=== PATIENT | male | born 1955 | race Caucasian/White ===

== ENCOUNTER → 2016-09-09 | Outpatient (CLI) | payer BC ==
[~2016-09-09] MED LIST: HYGROTON25 MG PO; LIPITOR20 M1 PO; MIRALAX17 GM PO; NORVASC5 MG PO; SENNA8.6 MG PO; TYLENOL325 MG PO
--- NOTE | ~2016-09-09 | ESTC ---
Cardiac Perfusion Imaging Demographics Patient Name JODY Luna Gender Male Patient Number [id number] Race Visit Number [id number] Ethnicity Corporate ID Room Number Accession Number [id number] Height 71 inches Date of 1955 Weight 360 pounds Interpreting RICKIE Naa [place] Date of study 09/09/2016 Physician Rigoberto Nunn Supervising /NOBLEP Yossi Ornelas APRN NM Technologist Ordering Physician Wanda Singh MD Stress Mahesh Cortes RVT, pilot plant research technician RDCS Stress ECG Reading Yossi Ornelas APRN Nurse Rosi Tavarez RN Physician The procedure was explained in detail to the patient. Risks, complications and alternative treatments were reviewed. Written consent was obtained. Medications Reviewed with Patient prior to Procedure. Procedure Procedure Type: Nuclear Stress Test:Pharmacological, Lexiscan, Cardiolite Stress Test Procedure Start time: 09/09/2016 00:00 Indications: Pre surgical clearance. Risk Factors The patient risk factors include:obesity, hypercholesterolemia and hypertension. Conclusions Summary Perfusion Images: The overall quality of the study is good. Left ventricular cavity is noted to be normal on the stress and rest studies. The right ventricle is not visualized and cannot be assessed. Stress SPECT images and Rest SPECT images demonstrate homogenous tracer distribution throughout the myocardium except for a small size mild decrease uptake in the area involving the apical wall on stress images, only on horizontal long axis images, likely an artifact. Gated SPECT imaging reveals normal myocardial thickening and wall motion. The left ventricular ejection fraction was calculated to be 66%. Impression ECG portion of stress test is clinically negative for ischemia by diagnostic criteria. Myocardial perfusion imaging is probably normal. Overall left ventricular systolic function was normal without regional wall motion abnormalities. There are no previous studies for comparison . Stress Protocols Resting ECG Normal sinus rhythm. Resting HR:68 bpm Resting BP:178/79 mmHg Pre-stress physical exam: Patient assessed by Michael WHIPPLE prior to testing. Chest - CTA Cardio - RRR, S1, S2 Stress Protocol:Pharmacologic Peak HR:92 bpm HR response: Appropriate Peak BP:184/84 mmHg BP response: Appropriate Predicted HR: 161 bpm HR/BP product:56908 % of predicted HR: 57 Test duration: 04:30 min Reason for termination:Infusion complete ECG Findings No ECG changes suggestive of ischemia. Arrhythmias No rhythm abnormality. Symptoms Mild Shortness of breath. Chest tightness Complications Procedure complication: None. Stress Interpretation Appropriate hemodynamic response to Lexiscan. No significant ST-T wave changes with Lexiscan. ECG portion is negative for ischemia by diagnostic criteria. Will correlate with nuclear images. Imaging Results Summed scores - Summed stress score: 8 - Summed rest score: 5 - Summed difference score: 3 Stress ejection Ejection fraction:66 % EDV :148 ml ESV :50 ml Stroke volume :98 ml LV mass :153 gr Imaging Protocols Rest Stress Isotope:Tc99m Sestamibi IV Isotope: Tc99m Sestamibi IV Isotope dose:15.6 mCi Isotope dose:45.3 mCi Date:09/09/2016 07:16 Date:09/09/2016 08:48 Technique: SPECT Technique: Gated Supine SPECT Supine Scan Time:45-60 minutes post Scan Time:45-60 minutes post injection injection Procedure Medications - Regadenoson (Lexiscan) 0.4 mg IV over 10-15 sec. I.V. . Medical History Admission Data Admission date: 09/09/2016 Admission Time: 06:50 Hospital Status: Outpatient. Signatures dtt: ANA CHO dtd: 09/09/16 0000 Physician Self Edit
--- NOTE | ~2016-09-09 | ECHO ---
Transthoracic Echocardiography Report (TTE) Demographics Patient Name TEAGAN VERA Date of Study 09/09/2016 Patient Number [id number] Visit Number [id number] Date of 1955 Room Number Gender Male Number Age 61 year(s) Referring Wanda Singh MD Crime Investigator Special Agent Lillian Rodriguez, Physician RT,RVT,RDCS Physician Interpreting Domenic David Area Field Worker Physician A Supervising Ordering Wanda Singh MD, MD/MLP Physician Nurse Stress Occupational Therapist'S Assistant Conclusions Contractility Score Summary Normal Left Ventricular contractility was noted. Summary The estimated left ventricular ejection fraction is 70-75%. Mild concentric left ventricular hypertrophy. Procedure Type of Study TTE procedure:2D Echocardiogram, M-Mode, Doppler , Color Doppler. Procedure Date Date: 09/09/2016 Start: 12:06 PM Study Location: Echo Lab Technical Quality: Adequate visualization Indications:Pre surgical clearance. Additional Indications:Dyspnea Appropriate Use Criteria: 9 Patient Status: Routine HR: 78 bpm BP: 175/80 mmHg M-Mode/2D Measurements LV Diastolic Dimension: 5.09 cm LV Systolic Dimension: 1.97 cm LV Septum Diastolic: 0.91 cm LV Septum Systolic: 2.27 cm LV PW Diastolic: 1.31 cm LV PW Systolic: 2.27 cm Cardiac Output: 6.16 l/min AO Root Dimension: 3.5 cm LA Dimension: 4.1 cm EF Estimated: 75 % MV EPSS: 0.4 cm LVOT: 2.1 cm LVOT VTI: 22.8 cm LV Stroke volume: 78.93 ml Doppler Measurements AV Peak Velocity: 1.22 m/s MV Peak E-Wave: 0.94 m/s AV Peak Gradient: 5.95 mmHg MV Peak A-Wave: 0.85 m/s AV Mean Gradient: 3 mmHg MV E/A Ratio: 1.1 LVOT Peak Velocity: 1.34 m/s MV P1/2t: 77 msec PV Peak Velocity: 1.06 m/s E' Septal Velocity: 0.08 m/s PV Peak Gradient: 4.49 mmHg MV E/E' Ratio: 11.1 A' Septal Velocity: 0.13 m/s Findings Left Ventricle Mild concentric left ventricular hypertrophy. Diastolic assessment reveals Grade I diastolic dysfunction . Right Ventricle Normal right ventricle structure and function. Left Atrium Normal left atrial size. Right Atrium Normal right atrial size. Mitral Valve Normal mitral valve structure and function. Aortic Valve Normal aortic valve structure and function. Tricuspid Valve Normal tricuspid valve structure and function. Pulmonic Valve Normal pulmonic valve structure and function. Pericardial Effusion No evidence of pericardial effusion. Miscellaneous Visualized portions of the aortic root and ascending aorta appear normal in size. Pleural Effusion No evidence of pleural effusion. Contractility Score LV regional wall motion:(0-Non visualized 1-Normal 2-Hypokinesis 3-Akinesis 4-Dyskinesis 5-Aneurysm) Signature dtt: Isidoro Sheth dtd: 09/09/16 1206 Physician Self Edit
== END ==
LOC: GRAD 09-07 07:00 → GCAR 09-07 11:00 → GRAD 06:50
DX: I10 Essential (primary) hypertension (principal); R07.89 Other chest pain; R06.02 Shortness of breath
CPT/HCPCS: A9500; J2785

== ENCOUNTER 2016-10-11 05:05 | Inpatient (IN) | payer BC ==
[~2016-10-11] VITALS: Ht 177.8 cm; Wt 164.4 kg
--- NOTE | ~2016-10-11 | HP ---
PATIENT'S NAME: TEAGAN VERA [facility] AGE: 61 Y [address] ROOM: [place] [address] LOCATION: [facility] ADMIT DATE: 10/10/2016 History & Physical DISCHARGE DATE: FAMILY PHYSICIAN: DANA MARY MD ATTENDING PHYSICIAN: Spencer Valenzuela DATE OF SERVICE: HISTORY OF PRESENT ILLNESS: A 61-year-old male who was well until August 2016 when he was found to have a PSA of 30. He has no previous PSAs for comparison. He denies any voiding symptoms. He voids with a good, full stream without difficulty. He has nocturia x0. No hematuria, dysuria, or burning. He denies any bone pain except for some mild lumbar discomfort and recently seen by Dr. Ibrahim. His x-rays were unremarkable. He has had no weight loss, anorexia, or other systemic symptoms. He was seen in the hospital in 2007. Apparently, at that time, they had difficulty getting a Toney catheter in place, and he was then taken to the OR for placement of Toney catheter. He has had no further problems. 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 PAST MEDICAL HISTORY: ILLNESSES: 1. Obesity. 2. Hypertension. OPERATIONS: None. ALLERGIES: NONE. PHYSICAL EXAMINATION: VITAL SIGNS: 365 pounds. CHEST: Clear. HEART: Normal sinus rhythm. ABDOMEN: Soft and obese, with no palpable masses. GENITOURINARY: Normal, uncircumcised penis. Testicles are normal. Prostate PATIENT'S NAME: TEAGAN VERA [facility] AGE: 61 Y [address] ROOM: [place] [address] LOCATION: [facility] ADMIT DATE: 10/10/2016 History & Physical DISCHARGE DATE: FAMILY PHYSICIAN: DANA MARY MD ATTENDING PHYSICIAN: Spencer Valenzeula is enlarged and firm, especially the right lobe. RECTAL: Negative. LABORATORY AND DIAGNOSTIC DATA: Ultrasound study and biopsy of the prostate revealed a Gallo 9 on both sides with 4+5. On the left side, tumor involves 6/6 cores, approximately 83% of the sample. On the right side, 4/6 cores showed carcinoma. Bone scan: No evidence of metastatic disease. IMPRESSION: Carcinoma of the prostate, [place] 9. RECOMMENDATIONS: I had a long discussion with Teagan and his family concerning his cancer of the prostate with a Gallo 9 on both sides and a PSA of 30, making prognosis questionable. He is markedly obese, especially in the lower abdomen which rules out a robotic prostatectomy or an open retropubic prostatectomy. Radiation therapy was discussed with him at length. He finally decided on proceeding with a perineal prostatectomy. SPENCER VALENZUELA MD EKL/modl /[id number] CC: Dana Mary MD D: [id number] T: [id number] HISTORY & PHYSICAL
--- NOTE | ~2016-10-11 | OR ---
PATIENT'S NAME: TEAGAN VERA [facility] AGE: 61 Y [address] ROOM: [address] [address] LOCATION: [facility] [place] ADMIT DATE: 10/11/2016 OR/Procedure Report DISCHARGE DATE: FAMILY PHYSICIAN: DANA MARY MD ATTENDING PHYSICIAN: Jamey Magallon SURGEON: Jamey Magallon MD MANUFACTURING ENGINEERING DIRECTOR: Sduhakar Valenzuela MD. DATE OF PROCEDURE: 10/11/2016 PREOPERATIVE DIAGNOSIS: High-grade adenocarcinoma of the prostate. POSTOPERATIVE DIAGNOSIS: High-grade adenocarcinoma of the prostate plus urethral stricture/bladder neck contracture. PROCEDURE: 1. Radical perineal prostatectomy. 2. Filiforms and follower dilation of a urethral stricture. ANESTHESIA: Regional. INDICATION: This is a 61-year-old gentleman who was found to have a PSA of 30. He had no prior PSA's. He underwent a prostate biopsy which revealed Gallo grade 9 (4+5) in an extensive amount of the sample. Metastatic survey was negative. He is morbidly obese at approximately 370 pounds. For local control, he had opted to go ahead with a perineal prostatectomy. He was not a good candidate for any type of abdominal approach with the retropubic lower robotic assisted. With his high-grade extensive tumor, it was felt reasonable to remove the prostate and then proceed with some additional radiation. We will also likely be on hormone therapy. He presented at this time for that procedure. It was noted that he was hospitalized a number of years ago. He could not have a Toney catheter placed. He had to be taken the operating room for Toney catheter placement. As we found, he had recurrent stricture, he really did not have any significant voiding symptoms. DESCRIPTION OF PROCEDURE: Having obtained his informed consent, the patient was taken to the operating room. He was prepped and draped. We initially attempted to pass a red rubber catheter to drain his bladder, it would not go. We tried various catheters. Consistent with his history, we were not going to be able to get it in. Therefore, filiforms passed through and into the bladder, I used sequential followers dilating him up to a 22-[place]an. We should now be able to get the Lowsley retractor in. PATIENT'S NAME: TEAGAN VERA [facility] AGE: 61 Y [address] ROOM: [id number] [place], [place] [address] LOCATION: [facility] [place] ADMIT DATE: 10/11/2016 OR/Procedure Report DISCHARGE DATE: FAMILY PHYSICIAN: DANA MARY MD ATTENDING PHYSICIAN: Jamey Magallon He was then placed in an exaggerated lithotomy position. That is, we got in his back as far as we could, considering his huge pannus. He was draped and a curvilinear incision was made anterior to the anus. The ischial rectal fossa scissor delineated. The central tendon and rectal urethralis were dropped down. We came down onto the surface of the prostate. We then spent some time using blunt dissection as well as sharp dissection cautery, freeing up the attachments. This was more difficult because he is obese. Ultimately, we got it in and the prostate freed up. I then dissected the urethra out of the apex of the prostate sparing as much as possible for postoperative continence. We then dissected the urethra out. I passed a right angle behind it. We then divided anteriorly and placed a tag suture. We then exchanged the curved Lowsley for the straight Lowsley. The remaining urethra was removed. I then spent some more time of mobilizing the prostate gland. It is significantly stuck at the left bladder neck. He had obvious tumor there and consistent with his high-grade disease. We went ahead and freed the prostate up and took it off the bladder neck. We had to place one suture to tighten the bladder neck back up. The prostate was removed. He did not have a room or exposure to get clamps around the pedicles. We got hemostasis after we got the specimen out. We used cautery and stick ties. I then went back and took a separate portion of his right and left bladder neck. He had extensive tissue on the left side. We could not get back any further. We have to be cognizant of the orifices. My anastomotic sutures were then placed in the urethral stump over red rubber catheter. The 11 and 1 o'clock sutures were then placed in their corresponding position on the bladder neck. A 22-[place] Toney catheter was placed and our initial suture was tied down. We then placed our remaining sutures readily around the bladder neck. The anastomosis was then tied down. It irrigated nicely. It appeared to be watertight. We did not have any significant bleeding. After some further antibiotic irrigation, a Surgicel and a [place] drain left in the prostatic fossa. The wound was closed in layers. The patient tolerated the procedure well. Blood loss was estimated at 300 mL. All counts were correct. The patient returned to Recovery in awake and stable condition. JAMEY MAGALLON MD [facility] PATIENT'S NAME: TEAGAN VERA [facility] AGE: 61 Y [address] ROOM: [place] [address] LOCATION: [facility] [place] ADMIT DATE: 10/11/2016 OR/Procedure Report DISCHARGE DATE: FAMILY PHYSICIAN: DANA MARY MD ATTENDING PHYSICIAN: Jamey Magallon /[id number] CC: Dana Mary MD d: 10/11/16 1125 t: 10/25/16 1039, OPERATIVE SUMMARY
--- NOTE | ~2016-10-11 | DS ---
PATIENT'S NAME: TEAAGN VERA [facility] AGE: 61 Y [address] ROOM: [place] [address] [place]: [facility] [place] ADMIT DATE: 10/11/2016 Discharge Summary DISCHARGE DATE: 10/14/2016 FAMILY PHYSICIAN: Francisco Muñoz MD ATTENDING PHYSICIAN: Cesar Magallon FINAL DIAGNOSIS: Gallo grade 7 (4+3) adenocarcinoma of the prostate with a pathologic stage of pT2c. While the margins were felt to be uninvolved, he did have separate bladder neck specimens that did have a carcinoma. OTHER DIAGNOSES: 1. Hypertension. 2. Morbid obesity. SURGICAL PROCEDURE: Radical perineal prostatectomy on 10/11/2016. He also had filiform and follower dilation of a chronic urethral stricture. HOSPITAL COURSE: The patient was admitted for surgery. He had been counseled appropriately and understood the indications, risks, and benefits. He underwent the surgery. It was complicated by his morbid obesity, but he tolerated it well. Postoperative course was unremarkable. He was followed from a medical standpoint by Dr. Muñoz and the Hospitalist Service. Labs remained appropriate. He did not require any transfusions, and he was advanced on a diet and his activity was increased. On 10/14/2016, he was felt ready for discharge and a followup as an outpatient. He was having some ongoing perineal drainage, so his drain was continued. DISPOSITION: The patient is discharged to home in stable condition to resume his usual diet and activity. DISCHARGE MEDICATIONS: As at admission. He will follow up with Dr. Valenzuela at the beginning of the week for a wound check and possible removal of his drain. He will call in the meantime if he has any questions or concerns. Arrangements at that time will be made for catheter removal. CESAR MAGALLON MD [facility]/modl /[id number] PATIENT'S NAME: TEAGAN VERA [facility] AGE: 61 Y [address] ROOM: [place] [address] LOCATION: [facility] [place] ADMIT DATE: 10/11/2016 Discharge Summary DISCHARGE DATE: 10/14/2016 FAMILY PHYSICIAN: Francisco Muñoz MD ATTENDING PHYSICIAN: Cesar Magallon CC: Francisco Muñoz MD d: 10/25/162025 t: 11/08/16 1448, DISCHARGE SUMMARY
--- NOTE | ~2016-10-11 | CON ---
PATIENT'S NAME: TEAGAN VERA [facility] AGE: 61 Y [address] ROOM: [place] [address] LOCATION: [facility] [place] ADMIT DATE: 10/11/2016 Consultation DISCHARGE DATE: FAMILY PHYSICIAN: DANA MARY MD ATTENDING PHYSICIAN: Cesar Avalos REFERRING PHYSICIAN: Sudhakar Valenzuela MD CHIEF COMPLAINT: Hypertension. HISTORY OF PRESENT ILLNESS: The patient is a pleasant 61-year-old gentleman with a past medical history of hypertension, hyperlipidemia, obesity, and recently diagnosed prostate cancer who presents here for prostatectomy. The patient was recently diagnosed with prostate cancer in August 2016 after his outpatient clinic workup showed a PSA of 30. The patient had ultrasound-guided biopsy which showed prostate cancer with Gallo score of 9. The patient was seen by Dr. Valenzuela and had perineal prostatectomy today. The patient tolerated the procedure well. The patient currently denies chest pain, shortness of breath, fever, abdominal pain, chest pain, nausea, or vomiting. The patient reports that he tolerated his p.o. intake. The patient is currently on RESTORATIVE ART EMBALMER for pain control and rates his pain 1/10. PAST MEDICAL HISTORY: Obesity, hypertension, hyperlipidemia, and prostate cancer. FAMILY HISTORY: Father was diagnosed with prostate cancer in his 70s. SOCIAL HISTORY: The patient lives by himself. He is . Does not have a biological offspring, but has adopted kid. The patient reports of chewing tobacco. 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 ALLERGIES: NO KNOWN ALLERGY. MEDICATIONS: Takes: 1. Amlodipine 2.5 mg daily. 2. Lipitor 20 mg daily. 3. Chlorthalidone 25 mg daily. REVIEW OF SYSTEMS: All 10 systems has been reviewed. All negative except what is written on HPI. PATIENT'S NAME: TEAGAN VERA [facility] AGE: 61 Y [address] ROOM: [address] [address] LOCATION: [facility] [place] ADMIT DATE: 10/11/2016 Consultation DISCHARGE DATE: FAMILY PHYSICIAN: DANA MARY MD ATTENDING PHYSICIAN: Cesar Avalos PHYSICAL EXAMINATION: VITAL SIGNS: Temperature 98 Fahrenheit, blood pressure 161/80, heart rate 85, respiratory rate 23. GENERAL: The patient is alert and awake in no acute distress. HEENT: Moist oral mucosa. NECK: Supple. No JVD. LUNGS: Clear to auscultation bilaterally. No rhonchi or rales noted. HEART: Regular rate and rhythm. No MRG. ABDOMEN: Soft, nontender, nondistended. Bowel sound present. : Toney catheter in place with dressing on. Dressing clear, dry, and intact. Toney irrigation ongoing with serosanguineous fluid in the Toney bag. EXTREMITIES: On sequential compressive device bilaterally. No edema noted. NEURO: The patient alert and oriented x3. Motor and sensory grossly intact. ASSESSMENT AND PLAN: 1. Hypertension. The patient's blood pressure appears to be mildly elevated most likely secondary to pain medication. The patient currently on IV fluids. Thus, we will discontinue his chlorthalidone. We will start his amlodipine with increased dose of 5 mg. Please restart chlorthalidone when the patient is off IV fluid. 2. Tobacco chewing. Long discussion made with patient about tobacco chewing and its consequences. 3. Obesity. Discussed about weight loss and also for possible obstructive sleep apnea study as an outpatient. 4. Hyperlipidemia. Continue Lipitor. 5. Prostate cancer status post prostatectomy. Follow advice by primary team. Less than 30 minutes were spent on planning and care. Thank you very much for involving me in the care of this patient. MD BARRIE WILLS/edu /[id number] d: 10/12/16 0208 t: 10/15/16 1805, CONSULTATION REPORT
[~2016-10-11 05:05] MED LIST changes: -MIRALAX17 GM PO; -SENNA8.6 MG PO; -TYLENOL325 MG PO
--- NOTE | 2016-10-11 17:04 | NUR ---
SIgnificant event: Patient is alert and oriented. VSS, is hypertensive at times. ON 1 liter of O2/NC. IV to right hand. Is status post perineal prostatectomy, with spinal of Duramorph. Is on COUNTER CUTTER of Dilaudid, with on demand only of 0.2mg q 15 min with 4 mg lockout. Dressings to perineum are C/D/I. DId push COUNTER CUTTER x1 so far. Has CBI running at slow rate. Is on ETCO2 monitor. Is on bedrest and clear liquids for tonight. Cooperative with cares.
--- NOTE | 2016-10-12 04:24 | NUR ---
Significant Event:PT ALERT AND ORIENTED X3.PLEASANT WITH STAFF AND CARES. BEDREST AT THIS TIME. ENGINE COWLING INSTALLER PUMP DILAUDID DEMAND ONLY 0.2MG EVERY 15 MIN WITH 4MG LOCKOUT.PT HAD 2 DEMANDS WTIH 1 DELIVERY. CONTINOUS BLADDER IRRAGATION CONTINUES URINE PALE YELLOW. DID HAVE TO IRRAGATE AND GOT MODERATE SIZE CLOT OUT. HAVE HAD TO ISSUES SINCE.OUTPUT OF 720 NOTED.PT SCROTUM NOTED TO BE SWOLLEN AND BRUISED. ELEVATED WITH A TOWEL. TYLENOL GIVEN SCHEDULED AND HAS KEPT PAIN UNDER CONTROL. PT USES CALL LIGHT APPROP. Follow up:
[2016-10-12 05:45] LABS: BASOPHIL # 0.1 K/uL (0.0-0.2); BASOPHIL % 0.4 %; EOSINOPHIL % 0.2 %; HEMATOCRIT 38.1 % (37.0-53.0); IMMATURE GRANULOCYTE % 0.3 %; LYMPHOCYTE # 1.7 K/uL (0.8-4.0); LYMPHOCYTE % 12.9 %; MCH 30.7 pg (27.0-34.0); MCHC 34.1 gm/dL (32.0-36.5); MCV 89.9 fl (83.0-98.0); MONOCYTE # 1.4 K/uL (0.0-1.0); MPV 8.7 fl (9.4-12.4); NEUTROPHIL # (ANC) 9.8 K/uL (1.4-9.0); NEUTROPHIL % 75.2 %; NRBC % 0 /100WBC (0-0.00); PLATELET COUNT 217 K/uL (150-450); RBC 4.24 M/uL (4.00-6.00); RDW-CV 12.8 % (11.9-14.6)
[2016-10-12 06:19] LABS: ANION GAP 14.1 (10.0-19.0); BLOOD UREA NITROGEN 13 mg/dL (6-24); CALCIUM 7.9 mg/dL (8.5-10.5); CHLORIDE 98 mMol/L (96-110); CO2 26 mMol/L (22-32); ESTIMATED GFR (MDRD EQUATION) > 60; PHOSPHORUS 2.8 mg/dL (2.5-4.9); POTASSIUM 3.1 mMol/L (3.7-5.1); SODIUM 135 mMol/L (135-145)
--- NOTE | 2016-10-12 17:09 | NUR ---
Significant event: Patient is alert and oriented, VSS. on room air. Toney in place and in patent. Has ambulated x3 in hallway without difficulty. Scrotum remains swollen and bruising has increased. 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 Has rountine tylenol scheduled and Nucynta prn if needed. Is on regular diet but appetite has been decreased. Tolerating fluids well. Has IV to right hand will be saline locked. Cooperative with cares.
--- NOTE | 2016-10-13 03:22 | NUR ---
Significant Event: A&Ox3, VSS on room air. 3+ edema to eccymotic scrotum. Propped up with rolled up towel. Dressing has moderate drainage. Blood around cathetor. Toney patent draining bloody urine. Denies pain. Scheduled tylenol, 0200 dose held as patient reached acetaminophen limit. Rested well this shift. Denies needs. Follow up: continue with plan of care.
[2016-10-13 05:23] LABS: ALBUMIN 2.8 gm/dL (3.5-5.0); ANION GAP 8.4 (10.0-19.0); BLOOD UREA NITROGEN 10 mg/dL (6-24); CALCIUM 7.9 mg/dL (8.5-10.5); CHLORIDE 100 mMol/L (96-110); CO2 34 mMol/L (22-32); ESTIMATED GFR (MDRD EQUATION) > 60; POTASSIUM 3.4 mMol/L (3.7-5.1); SODIUM 139 mMol/L (135-145)
[2016-10-13 05:27] LABS: PHOSPHORUS 1.8 mg/dL (2.5-4.9)
--- NOTE | 2016-10-13 13:34 | NUR ---
I have examined the student charting and find it acceptable. VITO Contreras
--- NOTE | 2016-10-13 17:31 | NUR ---
AAOx3. Up independently in room. Ambulated in hallways. Lap sites x2 below scrotum w/[place] drain. Tolerating regular diet. C/O MCGARRY earlier, but slept it off (caffeine?). PIV s/l'd. Encourage IS while awake. Toney draining dark pink urine w/900ml UOP. Scheduled Tylenol. No PRN meds given. Probable d/c tomorrow w/drain pulled in a.m.
--- NOTE | 2016-10-14 03:19 | NUR ---
Significant Event: A&Ox3, VSS on room air. IND in room, up-adlib. Tripping hazards removed. Patient denies needs. [place] drain more visible at 2nd assessment. Moderate drainage, ABD pad and chux to catch drainage. Toney patent, output decreased from last night. Patient states he "isn't drinking as much water" as last night. Patient also states the "urge" to void is starting to bother him more. Bladder scanned with 0ml result. Scheduled tylenol. Pleasant and cooperative with cares. Follow up:D/C today
[2016-10-14 06:17] LABS: ANION GAP 10.4 (10.0-19.0); BLOOD UREA NITROGEN 14 mg/dL (6-24); CALCIUM 8.2 mg/dL (8.5-10.5); CHLORIDE 102 mMol/L (96-110); CO2 30 mMol/L (22-32); ESTIMATED GFR (MDRD EQUATION) > 60; POTASSIUM 3.4 mMol/L (3.7-5.1); SODIUM 139 mMol/L (135-145)
[2016-10-14] MEDS ORDERED: MIRALAX17 GM PO (12:46)
[2016-10-14] MEDS ORDERED: SENNA8.6 MG PO (12:47)
[2016-10-14] MEDS ORDERED: TYLENOL325 MG PO (12:47)
--- NOTE | 2016-10-14 14:50 | NUR ---
DISCHARGE: Pt. was educated on new medications, educated on santos care, cleaning, and leg bag teaching. Education given on prostatectomy aftercare and wound care. Verbalized understanding, no questions or concerns. Refuses immunizations prior to discharge. Left with all belongings and prescriptions. Will follow up on Monday as scheduled. Taken to front door by aide and driven home by family.
--- NOTE | 2016-10-14 16:17 | NUR ---
Toney catheter had more volume in morning. Patient may have emptied independently and not reported volume.
--- NOTE | 2016-10-24 13:18 | NUR ---
After several attempts was able to reach patient for his post hospitalization follow up call. 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 Saw Dr. Valenzuela last Thrusday and was told the fistula would reslove. Patient feels it is greatly distubing his quality of life. Encourage patient to call doctor today and express his concerns. His sleep is being disturbed by the frequent need to change to pad that is absorbing the urine, he feels he cannot leave his home and reports tenderness in the area. He will call doctor today and I will make a folow up call to patient tomorrow. Patient has no questions concerning his medications. States he hospital stay went well, he felt the staff did a "first rate" job. I did asked patient if he planned to follow up on a sleep study and he said after he gets the fistula problem taken care of he would talk with his PCP about a sleep study. Will call tomorrow to check on patient.
--- NOTE | 2016-10-26 09:51 | NUR ---
I was off of the office yesterday so follow up call was made. Patient reports that he spoke with Dr. Avalos yesterday and has an appointment with Dr. Valenzuela today regarding the copious drainage from the fistula. Patient has my office number and was instructed to call if he felt I could assist him.
== END 2016-10-14 14:50 | disposition disaster alternative care site (69) | DRG 707 ==
LOC: GMSU 05:05 → GSDC 05:05 → EDSTATUS 11:00 → GMSU 13:29 → GSDC 13:30 → GMSU 10-14 14:50
PROVIDERS: Nurse Practitioner Family; Physician Assistant; Urology; ADMIT Urology
PROC: 0VT00ZZ Resection of Prostate, Open Approach (ICD-10-PCS; principal; 2016-10-11)
PROC: 0T7D7DZ Dilation of Urethra with Intraluminal Device, Via Natural or Artificial Opening (ICD-10-PCS; principal; 2016-10-11)
DX: C61 Malignant neoplasm of prostate (principal); Z68.43 Body mass index [BMI] 50.0-59.9, adult; E66.01 Morbid (severe) obesity due to excess calories; E78.5 Hyperlipidemia, unspecified; I10 Essential (primary) hypertension; N32.0 Bladder-neck obstruction; N35.9 Urethral stricture, unspecified; F17.220 Nicotine dependence, chewing tobacco, uncomplicated
CPT/HCPCS: J0690; J0713; J1170; J2001; J2250; J2274; J2300; J2405; J7030

== ENCOUNTER 2016-10-16 08:26 | Emergency (ER) | payer BC ==
--- NOTE | ~2016-10-16 | ER ---
PATIENT'S NAME: TEAGAN VERA [facility] AGE: 61 Y [address] ROOM: [place] [address] LOCATION: [facility] ADMIT DATE: 10/16/2016 ER/Outpatient Report DISCHARGE DATE: 10/16/2016 FAMILY PHYSICIAN: Francisco Muñoz MD ATTENDING PHYSICIAN: Jeannie Hansen Time of Arrival: 0826 hours. Time of Evaluation: 0840 hours. IDENTIFICATION: A 61-year-old male. CHIEF COMPLAINT: Perineal pain and drainage. HISTORY OF PRESENT ILLNESS: The patient is a 61-year-old male, who is status post prostatectomy for prostate cancer by Dr. Avalos and Dr. Valenzuela on October 11, 2016. He was discharged on Monday. He does have a perineal drain in place, which he thought Dr. Valenzuela had discussed taking out on Monday prior to discharge. He has had a lot of drainage from this area, which has been problematic and irritating with increase in pain. The patient has no abdominal pain. No nausea, vomiting. No constipation. No other problems or concerns. No fever or chills. ALLERGIES: NO KNOWN DRUG ALLERGIES. CURRENT MEDICATIONS: 1. Atorvastatin 20 mg at h.s. 2. Amlodipine 5 mg daily. 3. MiraLAX 17 g daily. 4. Senna tablet one daily. 5. Acetaminophen p.r.n. pain. 6. Myrbetriq 50 mg tablet for bladder spasm. MEDICAL PROBLEMS: High-grade adenocarcinoma of the prostate, urethral stricture, hyperlipidemia, hypertension, obesity. PRIOR SURGERIES: Radical perineal prostatectomy, filiforms and follower dilation of a urethral stricture. SOCIAL HISTORY: PATIENT'S NAME: [facility] AGE: 61 Y [address] 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 Tobacco use, denies. Alcohol use, denies. Drug use, denies. FAMILY HISTORY: No pertinent family history identified. REVIEW OF SYSTEMS: All systems reviewed and negative other than what is noted in the HPI. PHYSICAL EXAMINATION: VITAL SIGNS: Height 5 feet 11 inches, weight 167.1 kg, blood pressure 203/94, pulse 78, respirations 24, temperature 98.6, and saturations 98%. Discharge blood pressure 186/88. GENERAL: A 61-year-old male, in no acute distress. HEENT: Head: Normocephalic, atraumatic. Ears: TMs translucent both ears. Nose: Mucosa pink, no lesions. Mouth: No lesions. Pharynx benign. NECK: Supple. No lymphadenopathy. LUNGS: Clear to auscultation. HEART: Regular rate and rhythm. No murmur, rub, or gallop. ABDOMEN: Protuberant. Bowel sounds present. Soft, nondistended. No hepatosplenomegaly. No palpable masses. Nontender. SKIN: [place], warm, and dry. NEURO: The patient is alert and oriented x4. Cranial nerves 2 through 12 grossly intact. Motor strength 5/5 throughout. Sensation is intact to light touch. : The patient has a Toney catheter, and it is draining burgundy colored urine. Perineum, the patient has a [place] drain on the left perineum with profuse amount of serosanguineous drainage from this. It is almost a steady stream of drainage. There is no significant surrounding erythema. There is no maceration of the tissues, but he is tender to palpation over this area. LABORATORY DATA AND X-RAYS: Sodium 140, potassium 3.9, chloride 104, CO2 of 30, BUN 17, creatinine 1.1, blood sugar 104, albumin low at 2.9. Liver enzymes normal. Hemoglobin 12.0, hematocrit 35.7, platelets 254, white count 10.6 with a normal differential. Urine creatinine 156 from the Toney catheter. Urine creatinine from the perineal drainage is 170. UA: Specific gravity 1.020, pH 5.0, leukocytes positive, nitrites positive, 20-50 white cells, 20-50 red cells, negative bacteria. Urine culture will be obtained. CT scan with IV contrast status post recent prostatectomy, there is a small contained bladder leak posteriorly. No evidence of leak communicating with the Sandra drain at the perineum. Fatty liver. IMPRESSION AND PLAN: 1. Pain and increased drainage status post prostatectomy. No evidence of PATIENT'S NAME: TEAGAN VERA [facility] AGE: 61 Y [address] ROOM: [place], [place] [address] LOCATION: [facility] ADMIT DATE: 10/16/2016 ER/Outpatient Report DISCHARGE DATE: 10/16/2016 FAMILY PHYSICIAN: Francisco Muñoz MD ATTENDING PHYSICIAN: Jeannie Hansen infection. I did discuss this with Dr. Meadows twice. A long discussion with the patient. I also had Wound Ostomy see the patient to see if there is anything we could do regarding the drainage. She attempted to pouch the wound, but that had already slid off due to the moisture in the area and did not stay adhesed. We discussed alternative of diapering and protecting the skin. He was given a sample of bariatric diapers and will see Dr. Valenzuela tomorrow. 2. Perineal pain and irritation. No evidence of infection. Plan [place] 5/325 one to two p.o. q.4-6 hours p.r.n. severe pain, dispensed 15 with zero refills, rest, and follow up with Dr. Valenzuela as scheduled tomorrow, which is Monday. 3. Obesity. 4. Hypertension. Continue current antihypertensives. 5. Decreased p.o. intake. The patient was given a 500 mL saline bolus while here in the emergency room. 6. Hematuria. With some white blood cells, urine will be cultured. All questions were answered, and the patient was comfortable with this plan of care, and he did not want any pain medication while here in the emergency room. JEANNIE HANSEN MD CAR/modl /[id number] d: 10/16/16 2247 t: 10/21/16 0756, OUTPATIENT REPORT
--- NOTE | ~2016-10-16 | DS ---
PATIENT'S NAME: TEAGAN [facility] AGE: 61 Y [address] ROOM: [place] [address] LOCATION: [facility] ADMIT DATE: 10/16/2016 Discharge Summary DISCHARGE DATE: 10/16/2016 FAMILY PHYSICIAN: Francisco Muñoz MD ATTENDING PHYSICIAN: Jeannie Perez HOSPITAL COURSE: Teagan Vera is a 61-year-old male, who was found to have adenocarcinoma of the prostate in 08/2016 and Gallo 9 on both sides. Bone scan was normal. After a long discussion with Teagan, he decided on proceeding with a perineal prostatectomy. Because of its size and weight, a robotic prostatectomy was not possible. A perineal prostatectomy was done. Postoperatively, he did fine. His incision looks good. He was having some drainage from the Sandra drain, so he was dismissed home on his Sandra drain and to return to the office on 04/12. DIAGNOSIS: Adenocarcinoma of the prostate. OPERATIONS: Total perineal prostatectomy. DISPOSITION: As above. MD CHANDU WOODSL/modl /[id number] d: 10/18/16 0644 t: 10/19/16 0445, DISCHARGE SUMMARY
[~2016-10-16 08:26] MED LIST changes: +MIRALAX17 GM PO; +SENNA8.6 MG PO; +TYLENOL325 MG PO
[2016-10-16 09:54] LABS: BASOPHIL # 0.1 K/uL (0.0-0.2); BASOPHIL % 0.5 %; EOSINOPHIL # 0.1 K/uL (0.0-0.5); EOSINOPHIL % 1.3 %; HEMATOCRIT 35.7 % (37.0-53.0); IMMATURE GRANULOCYTE # 0.1 K/uL (0.0-0.3); IMMATURE GRANULOCYTE % 0.9 %; LYMPHOCYTE # 1.7 K/uL (0.8-4.0); LYMPHOCYTE % 15.8 %; MCH 30.7 pg (27.0-34.0); MCHC 33.6 gm/dL (32.0-36.5); MCV 91.3 fl (83.0-98.0); MONOCYTE # 0.9 K/uL (0.0-1.0); MONOCYTE % 8.7 %; MPV 8.7 fl (9.4-12.4); NEUTROPHIL # (ANC) 7.7 K/uL (1.4-9.0); NEUTROPHIL % 72.8 %; NRBC % 0 /100WBC (0-0.00); PLATELET COUNT 254 K/uL (150-450); RBC 3.91 M/uL (4.00-6.00); RDW-CV 13.3 % (11.9-14.6); WBC 10.6 K/uL (4.0-11.0)
[2016-10-16 10:12] LABS: ALBUMIN 2.9 gm/dL (3.5-5.0); ALK PHOS 57 IU/L (33-138); ALT 22 IU/L (12-78); ANION GAP 9.9 (10.0-19.0); AST 17 IU/L (10-40); BLOOD UREA NITROGEN 17 mg/dL (6-24); CALCIUM 8.4 mg/dL (8.5-10.5); CHLORIDE 104 mMol/L (96-110); CO2 30 mMol/L (22-32); CREATININE 1.1 mg/dL (0.6-1.3); ESTIMATED GFR (MDRD EQUATION) > 60; POTASSIUM 3.9 mMol/L (3.7-5.1); SODIUM 140 mMol/L (135-145); TOTAL BILIRUBIN 0.8 mg/dL (0.0-1.5); TOTAL PROTEIN 6.4 g/dL (6.0-8.4)
[2016-10-16 10:41] LABS: BILIRUBIN URINE NEGATIVE (NEGATIVE); BLOOD URINE 250 /UL (NEGATIVE); COLOR URINE OTHER (YELLOW); GLUCOSE URINE NEGATIVE (NEGATIVE); KETONE URINE 5 mg/dL (NEGATIVE); LEUKOCYTES URINE 500 /UL (NEGATIVE); NITRITE URINE POSITIVE (NEGATIVE); PROTEIN URINE 500 mg/dL (NEGATIVE); TURBIDITY URINE 4+ (CLEAR); UROBILINOGEN URINE 1 mg/dL (NORMAL)
[2016-10-16 10:49] LABS: RBC URINE 20-50 #/HPF (NEGATIVE); WBC URINE 20-50 #/HPF (NEGATIVE)
[2016-10-16 10:50] LABS: AMORPHOUS URINE 1+ (NEGATIVE); BACTERIA URINE FEW (NEGATIVE); EPITHELIAL URINE NEGATIVE #/HPF (NEGATIVE)
== END 2016-10-16 13:50 | disposition disaster alternative care site (69) ==
LOC: GMED 08:26
PROVIDERS: Family Medicine
DX: N99.842 Postprocedural seroma of a genitourinary system organ or structure following a genitourinary system procedure (principal); G89.18 Other acute postprocedural pain; R10.2 Pelvic and perineal pain; E66.9 Obesity, unspecified; I10 Essential (primary) hypertension; R31.9 Hematuria, unspecified; E78.5 Hyperlipidemia, unspecified; Z79.899 Other long term (current) drug therapy; Z85.46 Personal history of malignant neoplasm of prostate; Z90.79 Acquired absence of other genital organ(s); Y83.8 Other surgical procedures as the cause of abnormal reaction of the patient, or of later complication, without mention of misadventure at the time of the procedure
CPT/HCPCS: J7030

== ENCOUNTER 2016-10-29 21:26 | Emergency (ER) | payer BC ==
--- NOTE | ~2016-10-29 | ER ---
PATIENT'S NAME: TEAGAN VERA [facility] AGE: 61 Y [address] ROOM: [place] [address] LOCATION: ED ADMIT DATE: 10/29/2016 ER/Outpatient Report DISCHARGE DATE: 10/30/2016 FAMILY PHYSICIAN: Francisco Muñoz MD ATTENDING PHYSICIAN: Jeannie Perez TIME OF ARRIVAL: 2126 hours. TIME SEEN: 2240 hours. IDENTIFICATION: A 61-year-old male. CHIEF COMPLAINT: Perineal pain. HISTORY OF PRESENT ILLNESS: The patient is a 61-year-old male who underwent radical perineal prostatectomy on October 11, 2016. He then came in October 16 with perineal pain and drainage. He since has had his [place] drain removed that following Monday or Monday and has had persistent drainage from the site since that time. He has had quite a bit of drainage. Today, he has had decreased output from his catheter and while he was having a bowel movement developed sharp, burning pain from the tip of his penis to his anus. He has continued to have that discomfort. No fever or chills. No nausea or vomiting. No other problems or concerns. ALLERGIES: NO KNOWN DRUG ALLERGIES. CURRENT MEDICATIONS: 1. Atorvastatin 20 mg at h.s. 2. Amlodipine 5 mg daily. 3. MiraLAX 17 g daily. 4. Senna tablet daily. 5. Tylenol p.r.n. 6. Myrbetriq 50 mg daily. 7. I did prescribe him on October 16 some [place], which he only took one that day, he did not feel that it did anything so he has not taken anymore. MEDICAL PROBLEMS: Hyperlipidemia, Gallo grade 7, adenocarcinoma of the prostate with pathological stage of pT2c, urethral stricture, and obesity. PATIENT'S NAME: JODYTEAGAN [facility] AGE: 61 Y [address] ROOM: [place] [address] LOCATION: ED ADMIT DATE: 10/29/2016 ER/Outpatient Report DISCHARGE DATE: 10/30/2016 FAMILY PHYSICIAN: Francisco Muñoz MD ATTENDING PHYSICIAN: Jeannie Perez PRIOR SURGERIES: Radical perineal prostatectomy, filiforms and follower dilation of his urethral stricture. 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 Tobacco use, denies. Alcohol use, denies. Drug use, denies. FAMILY HISTORY: No pertinent family history identified. REVIEW OF SYSTEMS: All systems reviewed and negative other than what is noted in the HPI. PHYSICAL EXAMINATION: VITAL SIGNS: Height 5 feet, 11 inches, weight 168.2 kg, blood pressure 175/90, pulse 73, respirations 16, temp 99.7, and sats 95% on room air. GENERAL: A 61-year-old male in no acute distress. HEENT: Unremarkable. LUNGS: Clear to auscultation. HEART: Regular rate and rhythm. ABDOMEN: Protuberant, soft, nondistended, nontender. SKIN: [place], warm, and dry. : The patient has a Toney catheter and is draining cloudy urine. Perineum, the patient's [place] drain is absent, there is still an open area with serosanguineous drainage, he has an adjacent open area on the other side that I did not notice before. There is no surrounding erythema or drainage from that. No tenderness to palpation. No swelling of his scrotum. LABORATORY DATA: A UA reveals packed field of white cells, 20-50 red cells, 0-2 epithelial cells. Urine culture is pending. IMPRESSION: 1. Urinary tract infection. 2. Perineal pain. PLAN: Levaquin 750 mg p.o. given here then 750 mg p.o. daily for the next 6 days, Percocet 5/325 1-2 p.o. q.4-6 h. p.r.n. pain, dispensed 15 with 0 refills, and follow up with Dr. Valenzuela in 2 days. Follow up sooner if any problems or concerns. I also did discuss this with Dr. Cesar Avalos who had no further recommendations at this time. PATIENT'S NAME: TEAGAN VERA [facility] AGE: 61 Y [address] ROOM: [place] [address] LOCATION: ED ADMIT DATE: 10/29/2016 ER/Outpatient Report DISCHARGE DATE: 10/30/2016 FAMILY PHYSICIAN: Francisco Muñoz MD ATTENDING PHYSICIAN: Jeannie Perez MD ERICKA CARTAGENA/haiderl /[id number] d: 10/30/16 0352 t: 10/30/16 0512, OUTPATIENT REPORT
[2016-10-29 23:29] LABS: BILIRUBIN URINE NEGATIVE (NEGATIVE); BLOOD URINE 250 /UL (NEGATIVE); COLOR URINE YELLOW (YELLOW); GLUCOSE URINE NEGATIVE (NEGATIVE); KETONE URINE 5 mg/dL (NEGATIVE); LEUKOCYTES URINE 500 /UL (NEGATIVE); NITRITE URINE POSITIVE (NEGATIVE); PROTEIN URINE 100 mg/dL (NEGATIVE); TURBIDITY URINE 3+ (CLEAR); UROBILINOGEN URINE NORMAL (NORMAL)
[2016-10-29 23:37] LABS: RBC URINE 20-50 #/HPF (NEGATIVE); WBC URINE PACKED FIELD #/HPF (NEGATIVE)
[2016-10-29 23:38] LABS: BACTERIA URINE MANY (NEGATIVE); EPITHELIAL URINE 0-2 #/HPF (NEGATIVE); MUCUS URINE 2+ (NEGATIVE)
== END 2016-10-30 00:17 | disposition disaster alternative care site (69) ==
LOC: GMED 21:26
PROVIDERS: Family Medicine
DX: N39.0 Urinary tract infection, site not specified (principal); E78.5 Hyperlipidemia, unspecified; E66.9 Obesity, unspecified; Z85.46 Personal history of malignant neoplasm of prostate; Z98.890 Other specified postprocedural states

== ENCOUNTER 2016-11-17 21:57 | Emergency (ER) | payer BC ==
--- NOTE | ~2016-11-17 | ER ---
PATIENT'S NAME: TEAGAN VERA [facility] AGE: 61 Y [address] ROOM: [place] [address] LOCATION: [facility] ADMIT DATE: 11/17/2016 ER/Outpatient Report DISCHARGE DATE: 11/17/2016 FAMILY PHYSICIAN: Francisco Muñoz MD ATTENDING PHYSICIAN: Oli Mccarthy Time of Arrival: 2157 hours. Time of Evaluation: 2200 hours. CHIEF COMPLAINT: Clogged catheter. HISTORY OF PRESENT ILLNESS: This is a 61-year-old male who presents to the ER who states that he had a prostatectomy done by Dr. Valenzuela. He states he has had an indwelling urinary catheter since that time. He states he had some drainage from his incision site and once that healed up, he noticed that he had some mucusy-type discharge in his urine since that incision site healed up. He states that he is wondering if one of those mucus plugged up his catheter. He states that he has not noticed much drainage into his catheter since around 1900 hours this evening. He states he is having a little bit of discomfort in his abdomen. He denies any other problems at this time. The patient states his urologist he saw yesterday placed him on some Cipro for over the weekend before they removed this catheter on Monday, so he has taken 3 doses of his antibiotic. ALLERGIES: NO KNOWN ALLERGIES. MEDICATIONS: Please see medication list in nurse's notes. PAST MEDICAL HISTORY: 1. Prostate cancer. 2. Hyperlipidemia. 3. Urethral stricture. 4. Obesity. SOCIAL HISTORY: He denies smoking, drug, or alcohol use. REVIEW OF SYSTEMS: A 10-point review of systems was completed and was negative with the exception of those discussed in the HPI. PHYSICAL EXAMINATION: PATIENT'S NAME: TEAGAN VERA [facility] AGE: 61 Y [address] ROOM: [place] [address] LOCATION: [facility] ADMIT DATE: 11/17/2016 ER/Outpatient Report DISCHARGE DATE: 11/17/2016 FAMILY PHYSICIAN: Francisco Muñoz MD ATTENDING PHYSICIAN: Oli Mccarthy VITAL SIGNS: Height 5 feet 11 inches stated, weight 168 kg taken, blood pressure is 195/98, pulse 86, respirations 16, temperature 98.6 degrees tympanically, saturations 96% on room air. [place] Coma Score is 15. GENERAL: Alert, morbidly obese male, in no acute distress. LUNGS: Clear to auscultation bilaterally. No wheezes or crackles. Normal respiratory effort. HEART: Regular rate and rhythm. ABDOMEN: Soft. He has mild tenderness in the suprapubic area with palpation. LABORATORY DATA AND X-RAYS: None were done. IMPRESSION: Urinary catheter blockage. ASSESSMENT AND PLAN: We did flush the catheter and got good return and the patient had some relief of his discomfort. We did monitor him to make sure that it continued to drain and it did, so we will dismiss him to home. He needs to continue his antibiotic, monitor his symptoms, and follow up with his urologist for followup care. The patient understands and agrees with care. CAROLYNE SINHA PA-C FOR MD JACLYN DYER/edu /[id number] d: t: 11/20/16 1759, OUTPATIENT REPORT
== END 2016-11-17 22:45 | disposition disaster alternative care site (69) ==
LOC: GMED 21:57
DX: T83.091A Other mechanical complication of indwelling urethral catheter, initial encounter (principal); E78.5 Hyperlipidemia, unspecified; Z85.46 Personal history of malignant neoplasm of prostate; Z79.899 Other long term (current) drug therapy